=== PATIENT | female | born 1935 | race Caucasian/White ===

== ENCOUNTER 2016-07-08 10:06 | Emergency (ER) | payer OTHER, MEDICAID ==
[~2016-07-08 10:06] MED LIST: /HCTZ25TA PO; AVAP150T PO; CALC-136 PO; CALC600T7 PO; CALTTAB11 PO; ESTR2TAB PO; FLEC1.3D TD; MAGN200T3 PO; METOPROLOL PO; NUCY50TA PO; OMEGA XL PO; OMEP20CA3 PO; SUPETAB PO; TOPR25TA PO; VITA100066 PO; VITA500046 PO; VITACAP31 PO; VITAMIN B 12 PO; ZOFR4SOL PO; [UNRECOGNIZED DRUG - CODE] SC
[2016-07-08 11:27] LABS: BASO % 0.2 % (0.0-1.0); EOS % 0.2 % (0.0-3.0); LARGE UNSTAINED CELL # 0.1 K/mm3 (0.0-0.4); LARGE UNSTAINED CELL % 0.6 % (0.0-4.0); LYMPH # 0.9 K/mm3 (1.5-4.5); LYMPH % 7.2 % (24.0-44.0); MEAN CORPUSCULAR HEMOGLOBIN 28.5 pg (27.0-33.0); MEAN CORPUSCULAR HGB CONC 33.5 g/dl (32.0-36.5); MEAN CORPUSCULAR VOLUME 85.1 fl (80.0-96.0); MONO # 0.5 K/mm3 (0.0-0.8); MONO % 3.6 % (0.0-5.0); NEUTROPHILS # 11.4 K/mm3 (1.8-7.7); NEUTROPHILS % 88.3 % (36.0-66.0); PLATELET COUNT, AUTOMATED 211 k/mm3 (150-450); RED CELL DISTRIBUTION WIDTH 13.9 % (11.5-14.5)
[2016-07-08 11:48] LABS: CALCIUM LEVEL 8.7 MG/DL (8.8-10.2); CREATININE FOR GFR 1.06 MG/DL (0.55-1.02); FREE T4 1.33 NG/DL (0.76-1.46); GLOMERULAR FILTRATION RATE 53.2 (>39); MAGNESIUM LEVEL 1.8 MG/DL (1.8-2.4); POTASSIUM SERUM 4.4 MEQ/L (3.5-5.1)
[2016-07-08] MEDS ORDERED: levETIRAcetam 250MG TABLET (KEPPRA) As Ordered ONE (13:00)
--- NOTE | 2016-07-08 15:01 | EDDOCDS ---
Nurse's Notes [facility] Name: Sarika Esposito Age: 81 yrs Sex: Female : 1935 Arrival Date: 07/08/2016 Time: 10:06 Bed 6 Private MD: Diagnosis: Epilepsy and recurrent seizures;Alzheimer's disease Presentation: 07/08 10:12 Presenting complaint: EMS states: Called by EMS for unconscious, blanco female. On EMS jo3 arrival, pt was awake but not at her baseline. Pt has advanced Alzheimer's and is primarily non verbal and family reports intermittent episodes in which pt appears to lose consciousness and has tremors. This episode lasted 10 minutes. FSBS 136. Adult Sepsis Screening: Patient has new or worsening altered mentation (1 point). Patient's respiratory rate is less than 22. Systolic blood pressure is greater than 100. Patient has a qSOFA score of 1- Negative Sepsis Screen. Suicide/Homicide risk assessment- the patient denies having any suicidal and/or homicidal ideations and does not present with any other emotional, behavioral or mental health complaints. Status: Patient is not a customer service agent or dependent. Transition of care: patient was not received from another setting of care. 10:12 Method Of Arrival: Ambulance jo3 10:34 Acuity: SENAIT Level 3 kcs Triage Assessment: 10:40 General: Appears in no apparent distress, Behavior is inappropriate for age, quiet. The jo3 patient is triaged at the bedside. See Assessment in Nurses Notes section of ED record. Neurological: Level of Consciousness is awake, confused, Oriented to none. Cardiovascular: Edema is absent. Rhythm is regular. Respiratory: No deficits noted. Airway is patent Respiratory effort is even, unlabored, Respiratory pattern is regular, symmetrical, Breath sounds are clear bilaterally. Derm: Skin is intact, Skin is dry, Skin is pale, Skin temperature is cool. Musculoskeletal: MELY upper extremity mild contractions. Family reports that pt is unable to straighten mely arms. Injury Description: No known injury. Historical: - Allergies: No known drug Allergies; - Home Meds: 1. acetaminophen 500 mg Oral tab 1 tab BID (Last dose: 07/07/2016) 2. alprazolam 0.25 mg oral tab nightly (Last dose: 07/07/2016) 3. Citrucel Fiber Laxative Oral 1 tab twice a day (Last dose: 07/07/2016) 4. estradiol 2 mg Oral tab once daily (Last dose: 07/07/2016) 5. Rozerem 8 mg oral tab 1 tab nightly (Last dose: 07/07/2016) 6. risperidone 0.5 mg oral TbDL 0.5 tabs 2 times per day (Last dose: 07/08/2016) 7. magnesium oxide 400 mg Oral cap daily (Last dose: 07/07/2016) 8. irbesartan 150 mg oral tab once daily (Last dose: 07/08/2016) 9. Sertraline 100 mg nightly (Last dose: 07/07/2016) - PMHx: Alzheimers; Chronic kidney disease; Hypothyroidism; Dementia; Rheumatoid Arthritis; - PSHx: Hysterectomy; Hip Arthroplasty, Right; Partial Thyroidectomy; - The history from nurses notes was reviewed: and I agree with what is documented. - Social history: Smoking status: Patient states was never smoker of tobacco. Patient is speech impaired. - : The pt / caregiver states he / she is not on anticoagulants. Home medication list is obtained from family members. - Hospitalizations: : No recent hospitalization is reported. - Exposure Risk Screening:: None identified. - Immunization history:: All immunizations up-to-date. - Family history: Not pertinent. - Social history:: the patient is a non-smoker, the patient does not drink alcohol. Screenin:44 Screening information is obtained from family members. Fall risk: At risk due to jo3 immobility. Assistance ADL's: Requires assistance with meal preparation, this assistance is provided by family members, bathing, assistance is provided by family members, dressing, assistance is provided by family members, toileting, assistance is provided by family members, ambulation, assistance is provided by housework, assistance is provided by family members, medication administration, assistance is provided by family members. Abuse/DV Screen: The patient / caregiver reports he/she is: Unable to Assess. Nutritional screening: No deficits noted. Advance Directives:. home support is adequate. Assessment: 10:44 Reassessment: see triage assessment . jo3 11:15 General: Appears in no apparent distress, Behavior is quiet, Pt appears more alert than jo3 on arrival. Daughter and caregiver at bedside. Family reports that pt is closer to mental baseline at this time. Cardiovascular: Rhythm is regular. Respiratory: Airway is patent Respiratory effort is even, unlabored. Derm: Skin is intact, Skin is dry, Skin is pale, Skin temperature is cool. 12:15 Reassessment: Patient appears in no apparent distress at this time. Mentation closer jo3 still to baseline. Family remains at bedside. Awaiting results for disposition. Aware of plan of care. 13:20 General: Appears in no apparent distress, comfortable, Behavior is quiet. Neurological: jo3 Level of Consciousness is awake, confused. Cardiovascular: Rhythm is regular. Respiratory: Airway is patent Respiratory effort is even, unlabored. 14:34 General: Appears in no apparent distress, comfortable, Behavior is quiet. General: jo3 Awaiting transport home with caregiver at bedside. Per caregiver, transport should arrive around 1500. Neurological: Level of Consciousness is awake, confused. Cardiovascular: Rhythm is regular. Respiratory: Airway is patent Respiratory effort is even, unlabored. Derm: Skin is intact, Skin is dry, Skin is pale. Vital Signs: 10:13 BP 130 / 68 (auto/); jo3 10:14 Pulse 108 MON; Pulse Ox 93% ; jo3 10:16 BP 130 / 68; Pulse 107; Resp 18; Temp 97.0(O); Pulse Ox 94% on R/A; dem1 10:28 BP 128 / 63 (auto/); jo3 10:28 Pulse 108 MON; Pulse Ox 93% ; jo3 10:43 BP 127 / 60 (auto/); jo3 10:43 Pulse 110 MON; Pulse Ox 93% ; jo3 10:58 BP 133 / 74 (auto/); jo3 10:58 Pulse 112 MON; Pulse Ox 93% ; jo3 11:13 BP 131 / 73 (auto/); jo3 11:13 Pulse 112 MON; Pulse Ox 94% ; jo3 11:28 BP 133 / 65 (auto/); jo3 11:28 Pulse 110 MON; Pulse Ox 95% ; jo3 11:43 BP 133 / 64 (auto/); jo3 11:43 Pulse 110 MON; Pulse Ox 94% ; jo3 11:58 BP 144 / 60 (auto/); jo3 11:58 Pulse 112 MON; Pulse Ox 94% ; jo3 12:13 BP 143 / 66 (auto/); jo3 12:13 Pulse 108 MON; jo3 12:28 BP 141 / 67 (auto/); jo3 12:30 Pulse 108 MON; jo3 12:43 BP 126 / 58 (auto/); jo3 12:43 Pulse 106 MON; jo3 12:58 BP 103 / 55 (auto/); jo3 12:58 Pulse 92 MON; jo3 13:13 BP 130 / 70 (auto/); jo3 13:13 Pulse 96 MON; jo3 13:28 BP 145 / 70 (auto/); jo3 13:37 Pulse 106 MON; jo3 13:43 BP 145 / 65 (auto/); jo3 13:58 BP 146 / 65 (auto/); jo3 14:13 BP 150 / 67 (auto/); jo3 14:28 BP 146 / 83 (auto/); jo3 14:28 Pulse 106 MON; Resp 18; Temp 97.4(T); Pulse Ox 94% ; jo3 Vitals: 10:16 Log In Time N/A - ambulance arrival. [facility] ED Course: 10:07 Patient visited by Felicita Restrepo, Milk Drier. deg 10:07 Patient moved to Waiting deg 10:08 Patient moved to 6 kcs 10:16 Patient has correct armband on for positive identification. Placed in gown. Bed in low dem1 position. Call light in reach. Side rails up X2. traffic monitor specialist on. Pulse ox on. NIBP on. 10:18 Patient visited by Malika Ryder. dem1 10:30 EKG done. (by ED staff). Reviewed by Trevin Suero MD. dem1 10:31 Trevin Suero MD is Attending Physician. pc 10:32 Patient visited by Malika Ryder. dem1 10:34 Triage Initiated kcs 10:54 Patient visited by Zo Busch RN. jo3 11:04 Patient visited by Trevin Suero MD. pc 11:39 [facility] Payment Agreement was scanned into [employer] and attached to record. lg 11:50 Patient visited by Trevin Suero MD. pc 11:53 Patient visited by Zo Busch,OLINDA. jo3 13:05 Patient visited by Trevin Suero MD. pc 13:36 Everett Pat MD is Referral Physician. pc 14:35 Patient visited by Zo Busch RN. jo3 Administered Medications: 13:10 Drug: levETIRAcetam 250 mg [levetiracetam 250 mg tablet (1 tabs)] Route: PO; jo3 Order Results: Lab Order: CBC with Diff; SPEC'M 07/08/16 11:13 Test: WHITE BLOOD COUNT; Value: 13.0; Range: 4.0-10.0; Abnormal: Above high normal; Units: K/mm3; Status: F Test: RED BLOOD COUNT; Value: 4.46; Range: 4.00-5.40; Units: M/mm3; Status: F Test: HEMOGLOBIN; Value: 12.7; Range: 12.0-16.0; Units: g/dl; Status: F Test: HEMATOCRIT; Value: 37.9; Range: 36.0-47.0; Units: %; Status: F Test: MEAN CORPUSCULAR VOLUME; Value: 85.1; Range: 80.0-96.0; Units: fl; Status: F Test: MEAN CORPUSCULAR HEMOGLOBIN; Value: 28.5; Range: 27.0-33.0; Units: pg; Status: F Test: MEAN CORPUSCULAR HGB CONC; Value: 33.5; Range: 32.0-36.5; Units: g/dl; Status: F Test: RED CELL DISTRIBUTION WIDTH; Value: 13.9; Range: 11.5-14.5; Units: %; Status: F Test: PLATELET COUNT, AUTOMATED; Value: 211; Range: 150-450; Units: k/mm3; Status: F Test: NEUTROPHILS %; Value: 88.3; Range: 36.0-66.0; Abnormal: Above high normal; Units: %; Status: F Test: LYMPH %; Value: 7.2; Range: 24.0-44.0; Abnormal: Below low normal; Units: %; Status: F Test: MONO %; Value: 3.6; Range: 0.0-5.0; Units: %; Status: F Test: EOS %; Value: 0.2; Range: 0.0-3.0; Units: %; Status: F Test: BASO %; Value: 0.2; Range: 0.0-1.0; Units: %; Status: F Test: LARGE UNSTAINED CELL %; Value: 0.6; Range: 0.0-4.0; Units: %; Status: F Test: NEUTROPHILS #; Value: 11.4; Range: 1.8-7.7; Abnormal: Above high normal; Units: K/mm3; Status: F Test: LYMPH #; Value: 0.9; Range: 1.5-4.5; Abnormal: Below low normal; Units: K/mm3; Status: F Test: MONO #; Value: 0.5; Range: 0.0-0.8; Units: K/mm3; Status: F Test: EOS #; Value: 0.0; Range: 0.0-0.50; Units: K/mm3; Status: F Test: BASO #; Value: 0.0; Range: 0.0-0.2; Units: K/mm3; Status: F Test: LARGE UNSTAINED CELL #; Value: 0.1; Range: 0.0-0.4; Units: K/mm3; Status: F Lab Order: MED Profile; [facility]' 07/08/16 11:13 Test: GLUCOSE, FASTING; Value: 139; Range: 83-110; Abnormal: Above high normal; Units: MG/DL; Status: F Test: BLOOD UREA NITROGEN; Value: 26; Range: 7-18; Abnormal: Above high normal; Units: MG/DL; Status: F Test: CREATININE FOR GFR; Value: 1.06; Range: 0.55-1.02; Abnormal: Above high normal; Units: MG/DL; Status: F Test: GLOMERULAR FILTRATION RATE; Value: 53.2; Range: >39; Status: F Test: SODIUM LEVEL; Value: 138; Range: 136-145; Units: MEQ/L; Status: F Test: POTASSIUM SERUM; Value: 4.4; Range: 3.5-5.1; Units: MEQ/L; Status: F Test: CHLORIDE LEVEL; Value: 103; Range: 98-107; Units: MEQ/L; Status: F Test: CARBON DIOXIDE LEVEL; Value: 23; Range: 21-32; Units: MEQ/L; Status: F Test: ANION GAP; Value: 12; Range: 8-16; Units: MEQ/L; Status: F Test: CALCIUM LEVEL; Value: 8.7; Range: 8.8-10.2; Abnormal: Below low normal; Units: MG/DL; Status: F Test Note: ; Units are mL/min/1.73 m2 Chronic Kidney Disease Staging per NKF: Stage I & II GFR >=60 Normal to Mildly Decreased Stage III GFR 30-59 Moderately Decreased Stage IV GFR 15-29 Severely Decreased Stage V GFR <15 Very Little GFR Left ESRD GFR <15 on EEG TECHNICIAN Lab Order: TSH with Free T4; SPEC'M 07/08/16 11:13 Test: THYROID STIMULATING HORMONE; Value: 2.680; Range: 0.358-3.740; Units: uIU/ML; Status: F Test: FREE T4; Value: 1.33; Range: 0.76-1.46; Units: NG/DL; Status: F Lab Order: Magnesium Level; SPEC'M 07/08/16 11:13 Test: MAGNESIUM LEVEL; Value: 1.8; Range: 1.8-2.4; Units: MG/DL; Status: F Outcome: 13:37 Discharge ordered by Provider. 15:00 Patient left the ED. jo3 Signatures: Trevin Suero MD MD pc Sleeman, Kacey, RN RN Felicita Lofton, Milk Drier Unit deg Kareem Peacock, Doug Reg lg Zo BuschRN RN jo3 Malika Ryder MTDD
--- NOTE | 2016-07-08 15:01 | EDDOCDS ---
Physician Documentation [facility] Name: Sarika Esposito Age: 81 yrs Sex: Female : 1935 Arrival Date: 07/08/2016 Time: 10:06 Bed 6 Private MD: Disposition: 07/08 13:35 Critical Care: Critical care not applicable. pc Disposition: 07/08/16 13:37 Discharged to Home/Self Care. Impression: Epilepsy and recurrent seizures, Alzheimer's disease. - Condition is Stable. - Discharge Instructions: Seizure, Adult. - Prescriptions for Keppra 250 mg Oral tablet - take 1 tablet by ORAL route 2 times per day; 60 tablet. - Medication Reconciliation, Local Pharmacy Hours form. - Follow up: Everett Pat MD; When: Call to arrange an appointment; Reason: Continuance of care. - Problem is new. - Symptoms have improved. HPI: 11:07 This 81 yrs old Other Female presents to ER via Ambulance with complaints of Probable pc Seizure. 11:07 The history is obtained from the patient's family/friend. A reliable history and/or pc examination was not able to be obtained, due to baseline dementia. She was being reclined in a chair when her eyes rolled back into her head, she became apneic and "blanco around the mouth" and was unresponsive for 30-60 seconds. It was another 5-1- minutes before she was at her baseline. Her last such episode was months ago. She has advanced Alzheimer's dementia and her investigations for possible seizure activity have been negative to date. She has not had any recent illness. 11:14 The patient has experienced similar episodes in the past, multiple times. The patient pc has not recently seen a physician. Historical: - Allergies: No known drug Allergies; - Home Meds: 1. acetaminophen 500 mg Oral tab 1 tab BID (Last dose: 07/07/2016) 2. alprazolam 0.25 mg oral tab nightly (Last dose: 07/07/2016) 3. Citrucel Fiber Laxative Oral 1 tab twice a day (Last dose: 07/07/2016) 4. estradiol 2 mg Oral tab once daily (Last dose: 07/07/2016) 5. Rozerem 8 mg oral tab 1 tab nightly (Last dose: 07/07/2016) 6. risperidone 0.5 mg oral TbDL 0.5 tabs 2 times per day (Last dose: 07/08/2016) 7. magnesium oxide 400 mg Oral cap daily (Last dose: 07/07/2016) 8. irbesartan 150 mg oral tab once daily (Last dose: 07/08/2016) 9. Sertraline 100 mg nightly (Last dose: 07/07/2016) - PMHx: Alzheimers; Chronic kidney disease; Hypothyroidism; Dementia; Rheumatoid Arthritis; - PSHx: Hysterectomy; Hip Arthroplasty, Right; Partial Thyroidectomy; - The history from nurses notes was reviewed: and I agree with what is documented. - Social history: Smoking status: Patient states was never smoker of tobacco. Patient is speech impaired. - : The pt / caregiver states he / she is not on anticoagulants. Home medication list is obtained from family members. - Hospitalizations: : No recent hospitalization is reported. - Exposure Risk Screening:: None identified. - Immunization history:: All immunizations up-to-date. - Family history: Not pertinent. - Social history:: the patient is a non-smoker, the patient does not drink alcohol. ROS: 11:16 All systems are negative except as listed. pc Exam: 11:16 General Appearance: no acute distress, alert. pc 11:16 EENT: normal eye inspection, ears, nose and throat normal, pharynx normal, mucous membranes moist 11:16 Neck: goiter. 11:16 Respiratory: no respiratory distress, normal breath sounds. 11:16 CVS: regular rhythm, normal S1 and S2, no murmurs, strong peripheral pulses, normal capillary refill, the patient is tachycardic, at 107 bpm. 11:16 Abdomen: soft, non-tender, no organomegaly, normal bowel sounds. 11:16 Back: normal inspection. 11:16 Skin: skin color is normal, warm, dry. 11:16 Extremities: The extremities have a grossly normal appearance. 11:16 Neuro: cranial nerves normal as tested, no motor deficits, no sensory deficits, unable to test orientation because of chronic dementia. Vital Signs: 10:13 BP 130 / 68 (auto/); jo3 10:14 Pulse 108 MON; Pulse Ox 93% ; jo3 10:16 BP 130 / 68; Pulse 107; Resp 18; Temp 97.0(O); Pulse Ox 94% on R/A; dem1 10:28 BP 128 / 63 (auto/); jo3 10:28 Pulse 108 MON; Pulse Ox 93% ; jo3 10:43 BP 127 / 60 (auto/); jo3 10:43 Pulse 110 MON; Pulse Ox 93% ; jo3 10:58 BP 133 / 74 (auto/); jo3 10:58 Pulse 112 MON; Pulse Ox 93% ; jo3 11:13 BP 131 / 73 (auto/); jo3 11:13 Pulse 112 MON; Pulse Ox 94% ; jo3 11:28 BP 133 / 65 (auto/); jo3 11:28 Pulse 110 MON; Pulse Ox 95% ; jo3 11:43 BP 133 / 64 (auto/); jo3 11:43 Pulse 110 MON; Pulse Ox 94% ; jo3 11:58 BP 144 / 60 (auto/); jo3 11:58 Pulse 112 MON; Pulse Ox 94% ; jo3 12:13 BP 143 / 66 (auto/); jo3 12:13 Pulse 108 MON; jo3 12:28 BP 141 / 67 (auto/); jo3 12:30 Pulse 108 MON; jo3 12:43 BP 126 / 58 (auto/); jo3 12:43 Pulse 106 MON; jo3 12:58 BP 103 / 55 (auto/); jo3 12:58 Pulse 92 MON; jo3 13:13 BP 130 / 70 (auto/); jo3 13:13 Pulse 96 MON; jo3 13:28 BP 145 / 70 (auto/); jo3 13:37 Pulse 106 MON; jo3 13:43 BP 145 / 65 (auto/); jo3 13:58 BP 146 / 65 (auto/); jo3 14:13 BP 150 / 67 (auto/); jo3 14:28 BP 146 / 83 (auto/); jo3 14:28 Pulse 106 MON; Resp 18; Temp 97.4(T); Pulse Ox 94% ; jo3 MDM: 10:17 ECG WITH READING ER PHYS+CARDIAG ordered. EDMS 11:06 CBC with Diff Ordered. EDMS 11:06 MED Profile Ordered. EDMS 11:06 TSH with Free T4 Ordered. EDMS 11:06 Magnesium Level Ordered. EDMS 11:16 Differential Diagnosis: suspected seizure activity, advanced dementia. Plan: labs, d/w pc PCP. 11:27 Financial registration complete. lg 11:39 [facility] Payment Agreement was scanned into [employer] and attached to record. lg 11:50 CBC with Diff Reviewed. pc 11:50 MED Profile Reviewed. pc 11:50 TSH with Free T4 Reviewed. pc 11:50 Magnesium Level Reviewed. pc 12:52 levETIRAcetam 250 mg PO once ordered. pc 13:35 Data reviewed: old medical records, vital signs, nurses notes, lab test results. Test pc interpretation: LAB - all labs as ordered have been reviewed, interpreted and considered in the overall management of the clinical presentation;. The patient has been re-examined and re-evaluated. There is no appreciated change of the patient's symptoms at this time. Physician consultation: Dr. Dm Doshi MD regarding patient's condition, and advises the medications/treatment as provided. Disposition: The historical points, examination findings, and any diagnostic results supporting the provided diagnosis, were discussed with the patient or legal guardian. The need for outpatient follow up with the provider listed on their discharge instructions was discussed. They were encouraged to return to [facility], or the nearest ED, if symptoms worsen/persist, or for any other questions/concerns. 13:38 Test interpretation: EKG. pc EC:38 Rate is 127 beats/min. Rhythm is regular, Sinus tachycardia. QRS Converse is Normal. AL pc interval is normal. QRS interval is normal. QT interval is normal. No Q waves. T waves are Normal. ST Segment is depressed in leads V3, V4, V6, <1mm. Clinical impression: Sinus tachycardia, Nonspecific ST-T changes, and Incomplete RBBB. No change from previous ECG in January,. Administered Medications: 13:10 Drug: levETIRAcetam 250 mg [levetiracetam 250 mg tablet (1 tabs)] Route: PO; jo3 Signatures: Dispatcher [employer] EDMS Trevin Suero MD MD pc Ganter, LoriLee, Doug Camacho Zo Busch RN RN jo3 The chart was reviewed and I authenticate all verbal orders and agree with the evaluation and treatment provided.Corrections: (The following items were deleted from the chart) 11:16 11:07 She was being reclined in a chair when her eyes rolled back into her head, she pc became apneic and "blanco around the mouth" and was unresponsive for 30-60 seconds. It was another pc Attachments: 11:39 [facility]
--- NOTE | 2016-07-09 15:11 | ECGEPIP ---
Stationary ECG Study [facility] - ED Test Date: 2016-07-08 Pat Name: SIRI MESSER Department: Room: - Gender: F Vp: benjamín : 1935 Requested By: Trevin Rodgers Order Number: [id number] Reading MD: Patsy Villafuerte Measurements Intervals Sieper Rate: 107 P: 56 MI: 139 QRS: 36 QRSD: 114 T: 55 QT: 370 QTc: 496 Interpretive Statements SINUS TACHYCARDIA INCOMPLETE RIGHT BUNDLE BRANCH BLOCK ST DEVIATION AND MODERATE T-WAVE ABNORMALITY, CONSIDER ANTERIOR ISCHEMIA, MORE PRONOUNCED COMPARED 01/25/16 BASELINE ARTIFACT LIMITS INTERPRETATION Electronically Signed On 07-09-2016 15:10:55 EST by Patsy Villafuerte
--- NOTE | 2016-07-10 16:01 | EDDOCDS ---
Physician Documentation [facility] Name: Sarika Esposito Age: 81 yrs Sex: Female : 1935 Arrival Date: 07/08/2016 Time: 10:06 Bed 6 Private MD: Disposition: 07/08 13:35 Critical Care: Critical care not applicable. pc Disposition: 07/08/16 13:37 Discharged to Home/Self Care. Impression: Epilepsy and recurrent seizures, Alzheimer's disease. - Condition is Stable. - Discharge Instructions: Seizure, Adult. - Prescriptions for Keppra 250 mg Oral tablet - take 1 tablet by ORAL route 2 times per day; 60 tablet. - Medication Reconciliation, Local Pharmacy Hours form. - Follow up: Everett Pat MD; When: Call to arrange an appointment; Reason: Continuance of care. - Problem is new. - Symptoms have improved. HPI: 11:07 This 81 yrs old Other Female presents to ER via Ambulance with complaints of Probable pc Seizure. 11:07 The history is obtained from the patient's family/friend. A reliable history and/or pc examination was not able to be obtained, due to baseline dementia. She was being reclined in a chair when her eyes rolled back into her head, she became apneic and "blanco around the mouth" and was unresponsive for 30-60 seconds. It was another 5-1- minutes before she was at her baseline. Her last such episode was months ago. She has advanced Alzheimer's dementia and her investigations for possible seizure activity have been negative to date. She has not had any recent illness. 11:14 The patient has experienced similar episodes in the past, multiple times. The patient pc has not recently seen a physician. Historical: - Allergies: No known drug Allergies; - Home Meds: 1. acetaminophen 500 mg Oral tab 1 tab BID (Last dose: 07/07/2016) 2. alprazolam 0.25 mg oral tab nightly (Last dose: 07/07/2016) 3. Citrucel Fiber Laxative Oral 1 tab twice a day (Last dose: 07/07/2016) 4. estradiol 2 mg Oral tab once daily (Last dose: 07/07/2016) 5. Rozerem 8 mg oral tab 1 tab nightly (Last dose: 07/07/2016) 6. risperidone 0.5 mg oral TbDL 0.5 tabs 2 times per day (Last dose: 07/08/2016) 7. magnesium oxide 400 mg Oral cap daily (Last dose: 07/07/2016) 8. irbesartan 150 mg oral tab once daily (Last dose: 07/08/2016) 9. Sertraline 100 mg nightly (Last dose: 07/07/2016) - PMHx: Alzheimers; Chronic kidney disease; Hypothyroidism; Dementia; Rheumatoid Arthritis; - PSHx: Hysterectomy; Hip Arthroplasty, Right; Partial Thyroidectomy; - The history from nurses notes was reviewed: and I agree with what is documented. - Social history: Smoking status: Patient states was never smoker of tobacco. Patient is speech impaired. - : The pt / caregiver states he / she is not on anticoagulants. Home medication list is obtained from family members. - Hospitalizations: : No recent hospitalization is reported. - Exposure Risk Screening:: None identified. - Immunization history:: All immunizations up-to-date. - Family history: Not pertinent. - Social history:: the patient is a non-smoker, the patient does not drink alcohol. ROS: 11:16 All systems are negative except as listed. pc Exam: 11:16 General Appearance: no acute distress, alert. pc 11:16 EENT: normal eye inspection, ears, nose and throat normal, pharynx normal, mucous membranes moist 11:16 Neck: goiter. 11:16 Respiratory: no respiratory distress, normal breath sounds. 11:16 CVS: regular rhythm, normal S1 and S2, no murmurs, strong peripheral pulses, normal capillary refill, the patient is tachycardic, at 107 bpm. 11:16 Abdomen: soft, non-tender, no organomegaly, normal bowel sounds. 11:16 Back: normal inspection. 11:16 Skin: skin color is normal, warm, dry. 11:16 Extremities: The extremities have a grossly normal appearance. 11:16 Neuro: cranial nerves normal as tested, no motor deficits, no sensory deficits, unable to test orientation because of chronic dementia. Vital Signs: 10:13 BP 130 / 68 (auto/); jo3 10:14 Pulse 108 MON; Pulse Ox 93% ; jo3 10:16 BP 130 / 68; Pulse 107; Resp 18; Temp 97.0(O); Pulse Ox 94% on R/A; dem1 10:28 BP 128 / 63 (auto/); jo3 10:28 Pulse 108 MON; Pulse Ox 93% ; jo3 10:43 BP 127 / 60 (auto/); jo3 10:43 Pulse 110 MON; Pulse Ox 93% ; jo3 10:58 BP 133 / 74 (auto/); jo3 10:58 Pulse 112 MON; Pulse Ox 93% ; jo3 11:13 BP 131 / 73 (auto/); jo3 11:13 Pulse 112 MON; Pulse Ox 94% ; jo3 11:28 BP 133 / 65 (auto/); jo3 11:28 Pulse 110 MON; Pulse Ox 95% ; jo3 11:43 BP 133 / 64 (auto/); jo3 11:43 Pulse 110 MON; Pulse Ox 94% ; jo3 11:58 BP 144 / 60 (auto/); jo3 11:58 Pulse 112 MON; Pulse Ox 94% ; jo3 12:13 BP 143 / 66 (auto/); jo3 12:13 Pulse 108 MON; jo3 12:28 BP 141 / 67 (auto/); jo3 12:30 Pulse 108 MON; jo3 12:43 BP 126 / 58 (auto/); jo3 12:43 Pulse 106 MON; jo3 12:58 BP 103 / 55 (auto/); jo3 12:58 Pulse 92 MON; jo3 13:13 BP 130 / 70 (auto/); jo3 13:13 Pulse 96 MON; jo3 13:28 BP 145 / 70 (auto/); jo3 13:37 Pulse 106 MON; jo3 13:43 BP 145 / 65 (auto/); jo3 13:58 BP 146 / 65 (auto/); jo3 14:13 BP 150 / 67 (auto/); jo3 14:28 BP 146 / 83 (auto/); jo3 14:28 Pulse 106 MON; Resp 18; Temp 97.4(T); Pulse Ox 94% ; jo3 MDM: 10:17 ECG WITH READING ER PHYS+CARDIAG ordered. EDMS 11:06 CBC with Diff Ordered. EDMS 11:06 MED Profile Ordered. EDMS 11:06 TSH with Free T4 Ordered. EDMS 11:06 Magnesium Level Ordered. EDMS 11:16 Differential Diagnosis: suspected seizure activity, advanced dementia. Plan: labs, d/w pc PCP. 11:27 Financial registration complete. lg 11:39 [facility] Payment Agreement was scanned into [employer] and attached to record. lg 11:50 CBC with Diff Reviewed. pc 11:50 MED Profile Reviewed. pc 11:50 TSH with Free T4 Reviewed. pc 11:50 Magnesium Level Reviewed. pc 12:52 levETIRAcetam 250 mg PO once ordered. pc 13:35 Data reviewed: old medical records, vital signs, nurses notes, lab test results. Test pc interpretation: LAB - all labs as ordered have been reviewed, interpreted and considered in the overall management of the clinical presentation;. The patient has been re-examined and re-evaluated. There is no appreciated change of the patient's symptoms at this time. Physician consultation: Dr. Dm Doshi MD regarding patient's condition, and advises the medications/treatment as provided. Disposition: The historical points, examination findings, and any diagnostic results supporting the provided diagnosis, were discussed with the patient or legal guardian. The need for outpatient follow up with the provider listed on their discharge instructions was discussed. They were encouraged to return to [facility], or the nearest ED, if symptoms worsen/persist, or for any other questions/concerns. 13:38 Test interpretation: EKG. pc EC:38 Rate is 127 beats/min. Rhythm is regular, Sinus tachycardia. QRS [place] is Normal. VT pc interval is normal. QRS interval is normal. QT interval is normal. No Q waves. T waves are Normal. ST Segment is depressed in leads V3, V4, V6, <1mm. Clinical impression: Sinus tachycardia, Nonspecific ST-T changes, and Incomplete RBBB. No change from previous ECG in January,. Administered Medications: 13:10 Drug: levETIRAcetam 250 mg [levetiracetam 250 mg tablet (1 tabs)] Route: PO; jo3 Signatures: Dispatcher [employer] EDMS Trevin Suero MD MD pc Ganter, LoriLee, Doug Camacho Zo Busch RN RN jo3 The chart was reviewed and I authenticate all verbal orders and agree with the evaluation and treatment provided.Corrections: (The following items were deleted from the chart) 11:16 11:07 She was being reclined in a chair when her eyes rolled back into her head, she pc became apneic and "blanco around the mouth" and was unresponsive for 30-60 seconds. It was another pc Attachments: 11:39 [facility] Payment Agreement lg Chart Complete MTDD
--- NOTE | 2016-07-10 16:01 | EDDOCDS ---
Nurse's Notes [facility] Name: Sarika Messer Age: 81 yrs Sex: Female : 1935 Arrival Date: 07/08/2016 Time: 10:06 Bed 6 Private MD: Diagnosis: Epilepsy and recurrent seizures;Alzheimer's disease Presentation: 07/08 10:12 Presenting complaint: EMS states: Called by EMS for unconscious, blanco female. On EMS jo3 arrival, pt was awake but not at her baseline. Pt has advanced Alzheimer's and is primarily non verbal and family reports intermittent episodes in which pt appears to lose consciousness and has tremors. This episode lasted 10 minutes. FSBS 136. Adult Sepsis Screening: Patient has new or worsening altered mentation (1 point). Patient's respiratory rate is less than 22. Systolic blood pressure is greater than 100. Patient has a qSOFA score of 1- Negative Sepsis Screen. Suicide/Homicide risk assessment- the patient denies having any suicidal and/or homicidal ideations and does not present with any other emotional, behavioral or mental health complaints. Status: Patient is not a surgical services assistant or dependent. Transition of care: patient was not received from another setting of care. 10:12 Method Of Arrival: Ambulance jo3 10:34 Acuity: SENAIT Level 3 kcs Triage Assessment: 10:40 General: Appears in no apparent distress, Behavior is inappropriate for age, quiet. The jo3 patient is triaged at the bedside. See Assessment in Nurses Notes section of ED record. Neurological: Level of Consciousness is awake, confused, Oriented to none. Cardiovascular: Edema is absent. Rhythm is regular. Respiratory: No deficits noted. Airway is patent Respiratory effort is even, unlabored, Respiratory pattern is regular, symmetrical, Breath sounds are clear bilaterally. Derm: Skin is intact, Skin is dry, Skin is pale, Skin temperature is cool. Musculoskeletal: MELY upper extremity mild contractions. Family reports that pt is unable to straighten mely arms. Injury Description: No known injury. Historical: - Allergies: No known drug Allergies; - Home Meds: 1. acetaminophen 500 mg Oral tab 1 tab BID (Last dose: 07/07/2016) 2. alprazolam 0.25 mg oral tab nightly (Last dose: 07/07/2016) 3. Citrucel Fiber Laxative Oral 1 tab twice a day (Last dose: 07/07/2016) 4. estradiol 2 mg Oral tab once daily (Last dose: 07/07/2016) 5. Rozerem 8 mg oral tab 1 tab nightly (Last dose: 07/07/2016) 6. risperidone 0.5 mg oral TbDL 0.5 tabs 2 times per day (Last dose: 07/08/2016) 7. magnesium oxide 400 mg Oral cap daily (Last dose: 07/07/2016) 8. irbesartan 150 mg oral tab once daily (Last dose: 07/08/2016) 9. Sertraline 100 mg nightly (Last dose: 07/07/2016) - PMHx: Alzheimers; Chronic kidney disease; Hypothyroidism; Dementia; Rheumatoid Arthritis; - PSHx: Hysterectomy; Hip Arthroplasty, Right; Partial Thyroidectomy; - The history from nurses notes was reviewed: and I agree with what is documented. - Social history: Smoking status: Patient states was never smoker of tobacco. Patient is speech impaired. - : The pt / caregiver states he / she is not on anticoagulants. Home medication list is obtained from family members. - Hospitalizations: : No recent hospitalization is reported. - Exposure Risk Screening:: None identified. - Immunization history:: All immunizations up-to-date. - Family history: Not pertinent. - Social history:: the patient is a non-smoker, the patient does not drink alcohol. Screenin:44 Screening information is obtained from family members. Fall risk: At risk due to jo3 immobility. Assistance ADL's: Requires assistance with meal preparation, this assistance is provided by family members, bathing, assistance is provided by family members, dressing, assistance is provided by family members, toileting, assistance is provided by family members, ambulation, assistance is provided by housework, assistance is provided by family members, medication administration, assistance is provided by family members. Abuse/DV Screen: The patient / caregiver reports he/she is: Unable to Assess. Nutritional screening: No deficits noted. Advance Directives:. home support is adequate. Assessment: 10:44 Reassessment: see triage assessment . jo3 11:15 General: Appears in no apparent distress, Behavior is quiet, Pt appears more alert than jo3 on arrival. Daughter and caregiver at bedside. Family reports that pt is closer to mental baseline at this time. Cardiovascular: Rhythm is regular. Respiratory: Airway is patent Respiratory effort is even, unlabored. Derm: Skin is intact, Skin is dry, Skin is pale, Skin temperature is cool. 12:15 Reassessment: Patient appears in no apparent distress at this time. Mentation closer jo3 still to baseline. Family remains at bedside. Awaiting results for disposition. Aware of plan of care. 13:20 General: Appears in no apparent distress, comfortable, Behavior is quiet. Neurological: jo3 Level of Consciousness is awake, confused. Cardiovascular: Rhythm is regular. Respiratory: Airway is patent Respiratory effort is even, unlabored. 14:34 General: Appears in no apparent distress, comfortable, Behavior is quiet. General: jo3 Awaiting transport home with caregiver at bedside. Per caregiver, transport should arrive around 1500. Neurological: Level of Consciousness is awake, confused. Cardiovascular: Rhythm is regular. Respiratory: Airway is patent Respiratory effort is even, unlabored. Derm: Skin is intact, Skin is dry, Skin is pale. Vital Signs: 10:13 BP 130 / 68 (auto/); jo3 10:14 Pulse 108 MON; Pulse Ox 93% ; jo3 10:16 BP 130 / 68; Pulse 107; Resp 18; Temp 97.0(O); Pulse Ox 94% on R/A; dem1 10:28 BP 128 / 63 (auto/); jo3 10:28 Pulse 108 MON; Pulse Ox 93% ; jo3 10:43 BP 127 / 60 (auto/); jo3 10:43 Pulse 110 MON; Pulse Ox 93% ; jo3 10:58 BP 133 / 74 (auto/); jo3 10:58 Pulse 112 MON; Pulse Ox 93% ; jo3 11:13 BP 131 / 73 (auto/); jo3 11:13 Pulse 112 MON; Pulse Ox 94% ; jo3 11:28 BP 133 / 65 (auto/); jo3 11:28 Pulse 110 MON; Pulse Ox 95% ; jo3 11:43 BP 133 / 64 (auto/); jo3 11:43 Pulse 110 MON; Pulse Ox 94% ; jo3 11:58 BP 144 / 60 (auto/); jo3 11:58 Pulse 112 MON; Pulse Ox 94% ; jo3 12:13 BP 143 / 66 (auto/); jo3 12:13 Pulse 108 MON; jo3 12:28 BP 141 / 67 (auto/); jo3 12:30 Pulse 108 MON; jo3 12:43 BP 126 / 58 (auto/); jo3 12:43 Pulse 106 MON; jo3 12:58 BP 103 / 55 (auto/); jo3 12:58 Pulse 92 MON; jo3 13:13 BP 130 / 70 (auto/); jo3 13:13 Pulse 96 MON; jo3 13:28 BP 145 / 70 (auto/); jo3 13:37 Pulse 106 MON; jo3 13:43 BP 145 / 65 (auto/); jo3 13:58 BP 146 / 65 (auto/); jo3 14:13 BP 150 / 67 (auto/); jo3 14:28 BP 146 / 83 (auto/); jo3 14:28 Pulse 106 MON; Resp 18; Temp 97.4(T); Pulse Ox 94% ; jo3 Vitals: 10:16 Log In Time N/A - ambulance arrival. [facility] ED Course: 10:07 Patient visited by Felicita Restrepo, Olericulturist. deg 10:07 Patient moved to Waiting deg 10:08 Patient moved to 6 kcs 10:16 Patient has correct armband on for positive identification. Placed in gown. Bed in low dem1 position. Call light in reach. Side rails up X2. color television console monitor on. Pulse ox on. NIBP on. 10:18 Patient visited by Malika Ryder. dem1 10:30 EKG done. (by ED staff). Reviewed by Trevin Suero MD. dem1 10:31 Trevin Suero MD is Attending Physician. pc 10:32 Patient visited by Malika Ryder. dem1 10:34 Triage Initiated kcs 10:54 Patient visited by Zo Busch RN. jo3 11:04 Patient visited by Trevin Suero MD. pc 11:39 [facility] Payment Agreement was scanned into [employer] and attached to record. lg 11:50 Patient visited by Trevin Suero MD. pc 11:53 Patient visited by Zo Busch RN. jo3 13:05 Patient visited by Trevin Suero MD. pc 13:36 Everett Pat MD is Referral Physician. pc 14:35 Patient visited by Zo Busch RN. jo3 07/09 15:14 EKG-ADULT Returned. EDMS Administered Medications: 07/08 13:10 Drug: levETIRAcetam 250 mg [levetiracetam 250 mg tablet (1 tabs)] Route: PO; jo3 Order Results: Lab Order: CBC with Diff; SPEC'M 07/08/16 11:13 Test: WHITE BLOOD COUNT; Value: 13.0; Range: 4.0-10.0; Abnormal: Above high normal; Units: K/mm3; Status: F Test: RED BLOOD COUNT; Value: 4.46; Range: 4.00-5.40; Units: M/mm3; Status: F Test: HEMOGLOBIN; Value: 12.7; Range: 12.0-16.0; Units: g/dl; Status: F Test: HEMATOCRIT; Value: 37.9; Range: 36.0-47.0; Units: %; Status: F Test: MEAN CORPUSCULAR VOLUME; Value: 85.1; Range: 80.0-96.0; Units: fl; Status: F Test: MEAN CORPUSCULAR HEMOGLOBIN; Value: 28.5; Range: 27.0-33.0; Units: pg; Status: F Test: MEAN CORPUSCULAR HGB CONC; Value: 33.5; Range: 32.0-36.5; Units: g/dl; Status: F Test: RED CELL DISTRIBUTION WIDTH; Value: 13.9; Range: 11.5-14.5; Units: %; Status: F Test: PLATELET COUNT, AUTOMATED; Value: 211; Range: 150-450; Units: k/mm3; Status: F Test: NEUTROPHILS %; Value: 88.3; Range: 36.0-66.0; Abnormal: Above high normal; Units: %; Status: F Test: LYMPH %; Value: 7.2; Range: 24.0-44.0; Abnormal: Below low normal; Units: %; Status: F Test: MONO %; Value: 3.6; Range: 0.0-5.0; Units: %; Status: F Test: EOS %; Value: 0.2; Range: 0.0-3.0; Units: %; Status: F Test: BASO %; Value: 0.2; Range: 0.0-1.0; Units: %; Status: F Test: LARGE UNSTAINED CELL %; Value: 0.6; Range: 0.0-4.0; Units: %; Status: F Test: NEUTROPHILS #; Value: 11.4; Range: 1.8-7.7; Abnormal: Above high normal; Units: K/mm3; Status: F Test: LYMPH #; Value: 0.9; Range: 1.5-4.5; Abnormal: Below low normal; Units: K/mm3; Status: F Test: MONO #; Value: 0.5; Range: 0.0-0.8; Units: K/mm3; Status: F Test: EOS #; Value: 0.0; Range: 0.0-0.50; Units: K/mm3; Status: F Test: BASO #; Value: 0.0; Range: 0.0-0.2; Units: K/mm3; Status: F Test: LARGE UNSTAINED CELL #; Value: 0.1; Range: 0.0-0.4; Units: K/mm3; Status: F Lab Order: MED Profile; [facility]' 07/08/16 11:13 Test: GLUCOSE, FASTING; Value: 139; Range: 83-110; Abnormal: Above high normal; Units: MG/DL; Status: F Test: BLOOD UREA NITROGEN; Value: 26; Range: 7-18; Abnormal: Above high normal; Units: MG/DL; Status: F Test: CREATININE FOR GFR; Value: 1.06; Range: 0.55-1.02; Abnormal: Above high normal; Units: MG/DL; Status: F Test: GLOMERULAR FILTRATION RATE; Value: 53.2; Range: >39; Status: F Test: SODIUM LEVEL; Value: 138; Range: 136-145; Units: MEQ/L; Status: F Test: POTASSIUM SERUM; Value: 4.4; Range: 3.5-5.1; Units: MEQ/L; Status: F Test: CHLORIDE LEVEL; Value: 103; Range: 98-107; Units: MEQ/L; Status: F Test: CARBON DIOXIDE LEVEL; Value: 23; Range: 21-32; Units: MEQ/L; Status: F Test: ANION GAP; Value: 12; Range: 8-16; Units: MEQ/L; Status: F Test: CALCIUM LEVEL; Value: 8.7; Range: 8.8-10.2; Abnormal: Below low normal; Units: MG/DL; Status: F Test Note: ; Units are mL/min/1.73 m2 Chronic Kidney Disease Staging per NKF: Stage I & II GFR >=60 Normal to Mildly Decreased Stage III GFR 30-59 Moderately Decreased Stage IV GFR 15-29 Severely Decreased Stage V GFR <15 Very Little GFR Left ESRD GFR <15 on [employer]RE[employer] Lab Order: TSH with Free T4; SPEC'07/08/16 11:13 Test: THYROID STIMULATING HORMONE; Value: 2.680; Range: 0.358-3.740; Units: uIU/ML; Status: F Test: FREE T4; Value: 1.33; Range: 0.76-1.46; Units: NG/DL; Status: F Lab Order: Magnesium Level; SPEC'07/08/16 11:13 Test: MAGNESIUM LEVEL; Value: 1.8; Range: 1.8-2.4; Units: MG/DL; Status: F Radiology Order: EKG-ADULT Test: EKG-ADULT REASON FOR EXAMINATION: Syncope; Stationary ECG Study; [facility] - ED; ; Test Date: 2016-07-08; Pat Name: SARIKA MESSER Department:; Room: -; Gender: F It Application Development Manager: dm; : 1935 Requested By: Trevin Rodgers; Order Number: [id number] Reading MD: Patsy Villafuerte; Measurements; Intervals [place]; Rate: 107 P: 56; ND: 139 QRS: 36; QRSD: 114 T: 55; QT: 370; QTc: 496; Interpretive Statements; SINUS TACHYCARDIA; INCOMPLETE RIGHT BUNDLE BRANCH BLOCK; ST DEVIATION AND MODERATE T-WAVE ABNORMALITY, CONSIDER ANTERIOR ISCHEMIA,; MORE; PRONOUNCED COMPARED 01/25/16; BASELINE ARTIFACT LIMITS INTERPRETATION; ; Electronically Signed On 07-09-2016 15:10:55 EST by Patsy Villafuerte; Outcome: 13:37 Discharge ordered by Provider. pc 15:00 Patient left the ED. jo3 Signatures: Dispatcher [employer] Trevin Church MD MD pc Sleeman, Kacey, RN RN Felicita Lofton, Olericulturist Unit deg Kareem Peacock, Reg Reg Zo Lyons,RN RN jo3 Malika Ryder Chart Complete MTDD
--- NOTE | 2016-07-10 16:01 | EDDOCDS ---
Physician Documentation [facility] Name: Sarika Esposito Age: 81 yrs Sex: Female : 1935 Arrival Date: 07/08/2016 Time: 10:06 Bed 6 Private MD: Disposition: 07/08 13:35 Critical Care: Critical care not applicable. pc Disposition: 07/08/16 13:37 Discharged to Home/Self Care. Impression: Epilepsy and recurrent seizures, Alzheimer's disease. - Condition is Stable. - Discharge Instructions: Seizure, Adult. - Prescriptions for Keppra 250 mg Oral tablet - take 1 tablet by ORAL route 2 times per day; 60 tablet. - Medication Reconciliation, Local Pharmacy Hours form. - Follow up: Everett Pat MD; When: Call to arrange an appointment; Reason: Continuance of care. - Problem is new. - Symptoms have improved. HPI: 11:07 This 81 yrs old Other Female presents to ER via Ambulance with complaints of Probable pc Seizure. 11:07 The history is obtained from the patient's family/friend. A reliable history and/or pc examination was not able to be obtained, due to baseline dementia. She was being reclined in a chair when her eyes rolled back into her head, she became apneic and "blanco around the mouth" and was unresponsive for 30-60 seconds. It was another 5-1- minutes before she was at her baseline. Her last such episode was months ago. She has advanced Alzheimer's dementia and her investigations for possible seizure activity have been negative to date. She has not had any recent illness. 11:14 The patient has experienced similar episodes in the past, multiple times. The patient pc has not recently seen a physician. Historical: - Allergies: No known drug Allergies; - Home Meds: 1. acetaminophen 500 mg Oral tab 1 tab BID (Last dose: 07/07/2016) 2. alprazolam 0.25 mg oral tab nightly (Last dose: 07/07/2016) 3. Citrucel Fiber Laxative Oral 1 tab twice a day (Last dose: 07/07/2016) 4. estradiol 2 mg Oral tab once daily (Last dose: 07/07/2016) 5. Rozerem 8 mg oral tab 1 tab nightly (Last dose: 07/07/2016) 6. risperidone 0.5 mg oral TbDL 0.5 tabs 2 times per day (Last dose: 07/08/2016) 7. magnesium oxide 400 mg Oral cap daily (Last dose: 07/07/2016) 8. irbesartan 150 mg oral tab once daily (Last dose: 07/08/2016) 9. Sertraline 100 mg nightly (Last dose: 07/07/2016) - PMHx: Alzheimers; Chronic kidney disease; Hypothyroidism; Dementia; Rheumatoid Arthritis; - PSHx: Hysterectomy; Hip Arthroplasty, Right; Partial Thyroidectomy; - The history from nurses notes was reviewed: and I agree with what is documented. - Social history: Smoking status: Patient states was never smoker of tobacco. Patient is speech impaired. - : The pt / caregiver states he / she is not on anticoagulants. Home medication list is obtained from family members. - Hospitalizations: : No recent hospitalization is reported. - Exposure Risk Screening:: None identified. - Immunization history:: All immunizations up-to-date. - Family history: Not pertinent. - Social history:: the patient is a non-smoker, the patient does not drink alcohol. ROS: 11:16 All systems are negative except as listed. pc Exam: 11:16 General Appearance: no acute distress, alert. pc 11:16 EENT: normal eye inspection, ears, nose and throat normal, pharynx normal, mucous membranes moist 11:16 Neck: goiter. 11:16 Respiratory: no respiratory distress, normal breath sounds. 11:16 CVS: regular rhythm, normal S1 and S2, no murmurs, strong peripheral pulses, normal capillary refill, the patient is tachycardic, at 107 bpm. 11:16 Abdomen: soft, non-tender, no organomegaly, normal bowel sounds. 11:16 Back: normal inspection. 11:16 Skin: skin color is normal, warm, dry. 11:16 Extremities: The extremities have a grossly normal appearance. 11:16 Neuro: cranial nerves normal as tested, no motor deficits, no sensory deficits, unable to test orientation because of chronic dementia. Vital Signs: 10:13 BP 130 / 68 (auto/); jo3 10:14 Pulse 108 MON; Pulse Ox 93% ; jo3 10:16 BP 130 / 68; Pulse 107; Resp 18; Temp 97.0(O); Pulse Ox 94% on R/A; dem1 10:28 BP 128 / 63 (auto/); jo3 10:28 Pulse 108 MON; Pulse Ox 93% ; jo3 10:43 BP 127 / 60 (auto/); jo3 10:43 Pulse 110 MON; Pulse Ox 93% ; jo3 10:58 BP 133 / 74 (auto/); jo3 10:58 Pulse 112 MON; Pulse Ox 93% ; jo3 11:13 BP 131 / 73 (auto/); jo3 11:13 Pulse 112 MON; Pulse Ox 94% ; jo3 11:28 BP 133 / 65 (auto/); jo3 11:28 Pulse 110 MON; Pulse Ox 95% ; jo3 11:43 BP 133 / 64 (auto/); jo3 11:43 Pulse 110 MON; Pulse Ox 94% ; jo3 11:58 BP 144 / 60 (auto/); jo3 11:58 Pulse 112 MON; Pulse Ox 94% ; jo3 12:13 BP 143 / 66 (auto/); jo3 12:13 Pulse 108 MON; jo3 12:28 BP 141 / 67 (auto/); jo3 12:30 Pulse 108 MON; jo3 12:43 BP 126 / 58 (auto/); jo3 12:43 Pulse 106 MON; jo3 12:58 BP 103 / 55 (auto/); jo3 12:58 Pulse 92 MON; jo3 13:13 BP 130 / 70 (auto/); jo3 13:13 Pulse 96 MON; jo3 13:28 BP 145 / 70 (auto/); jo3 13:37 Pulse 106 MON; jo3 13:43 BP 145 / 65 (auto/); jo3 13:58 BP 146 / 65 (auto/); jo3 14:13 BP 150 / 67 (auto/); jo3 14:28 BP 146 / 83 (auto/); jo3 14:28 Pulse 106 MON; Resp 18; Temp 97.4(T); Pulse Ox 94% ; jo3 MDM: 10:17 ECG WITH READING ER PHYS+CARDIAG ordered. EDMS 11:06 CBC with Diff Ordered. EDMS 11:06 MED Profile Ordered. EDMS 11:06 TSH with Free T4 Ordered. EDMS 11:06 Magnesium Level Ordered. EDMS 11:16 Differential Diagnosis: suspected seizure activity, advanced dementia. Plan: labs, d/w pc PCP. 11:27 Financial registration complete. lg 11:39 [facility] Payment Agreement was scanned into [employer] and attached to record. lg 11:50 CBC with Diff Reviewed. pc 11:50 MED Profile Reviewed. pc 11:50 TSH with Free T4 Reviewed. pc 11:50 Magnesium Level Reviewed. pc 12:52 levETIRAcetam 250 mg PO once ordered. pc 13:35 Data reviewed: old medical records, vital signs, nurses notes, lab test results. Test pc interpretation: LAB - all labs as ordered have been reviewed, interpreted and considered in the overall management of the clinical presentation;. The patient has been re-examined and re-evaluated. There is no appreciated change of the patient's symptoms at this time. Physician consultation: Dr. Dm Doshi MD regarding patient's condition, and advises the medications/treatment as provided. Disposition: The historical points, examination findings, and any diagnostic results supporting the provided diagnosis, were discussed with the patient or legal guardian. The need for outpatient follow up with the provider listed on their discharge instructions was discussed. They were encouraged to return to [facility], or the nearest ED, if symptoms worsen/persist, or for any other questions/concerns. 13:38 Test interpretation: EKG. pc EC:38 Rate is 127 beats/min. Rhythm is regular, Sinus tachycardia. QRS [place] is Normal. [place] pc interval is normal. QRS interval is normal. QT interval is normal. No Q waves. T waves are Normal. ST Segment is depressed in leads V3, V4, V6, <1mm. Clinical impression: Sinus tachycardia, Nonspecific ST-T changes, and Incomplete RBBB. No change from previous ECG in January,. Administered Medications: 13:10 Drug: levETIRAcetam 250 mg [levetiracetam 250 mg tablet (1 tabs)] Route: PO; jo3 Signatures: Dispatcher [employer] EDMS Trevin Suero MD MD pc Ganter, LoriLee, Doug Camacho Zo Busch RN RN jo3 The chart was reviewed and I authenticate all verbal orders and agree with the evaluation and treatment provided.Corrections: (The following items were deleted from the chart) 11:16 11:07 She was being reclined in a chair when her eyes rolled back into her head, she pc became apneic and "blanco around the mouth" and was unresponsive for 30-60 seconds. It was another pc Attachments: 11:39 [facility] Payment Agreement lg Chart Complete MTDD
--- NOTE | 2016-07-10 20:23 | EDDOCDS ---
Physician Documentation [facility] Name: Sarika Esposito Age: 81 yrs Sex: Female : 1935 Arrival Date: 07/08/2016 Time: 10:06 Bed 6 Private MD: Disposition: 07/08 13:35 Critical Care: Critical care not applicable. pc Disposition: 07/08/16 13:37 Discharged to Home/Self Care. Impression: Epilepsy and recurrent seizures, Alzheimer's disease. - Condition is Stable. - Discharge Instructions: Seizure, Adult. - Prescriptions for Keppra 250 mg Oral tablet - take 1 tablet by ORAL route 2 times per day; 60 tablet. - Medication Reconciliation, Local Pharmacy Hours form. - Follow up: Everett Pat MD; When: Call to arrange an appointment; Reason: Continuance of care. - Problem is new. - Symptoms have improved. HPI: 11:07 This 81 yrs old Other Female presents to ER via Ambulance with complaints of Probable pc Seizure. 11:07 The history is obtained from the patient's family/friend. A reliable history and/or pc examination was not able to be obtained, due to baseline dementia. She was being reclined in a chair when her eyes rolled back into her head, she became apneic and "blanco around the mouth" and was unresponsive for 30-60 seconds. It was another 5-1- minutes before she was at her baseline. Her last such episode was months ago. She has advanced Alzheimer's dementia and her investigations for possible seizure activity have been negative to date. She has not had any recent illness. 11:14 The patient has experienced similar episodes in the past, multiple times. The patient pc has not recently seen a physician. Historical: - Allergies: No known drug Allergies; - Home Meds: 1. acetaminophen 500 mg Oral tab 1 tab BID (Last dose: 07/07/2016) 2. alprazolam 0.25 mg oral tab nightly (Last dose: 07/07/2016) 3. Citrucel Fiber Laxative Oral 1 tab twice a day (Last dose: 07/07/2016) 4. estradiol 2 mg Oral tab once daily (Last dose: 07/07/2016) 5. Rozerem 8 mg oral tab 1 tab nightly (Last dose: 07/07/2016) 6. risperidone 0.5 mg oral TbDL 0.5 tabs 2 times per day (Last dose: 07/08/2016) 7. magnesium oxide 400 mg Oral cap daily (Last dose: 07/07/2016) 8. irbesartan 150 mg oral tab once daily (Last dose: 07/08/2016) 9. Sertraline 100 mg nightly (Last dose: 07/07/2016) - PMHx: Alzheimers; Chronic kidney disease; Hypothyroidism; Dementia; Rheumatoid Arthritis; - PSHx: Hysterectomy; Hip Arthroplasty, Right; Partial Thyroidectomy; - The history from nurses notes was reviewed: and I agree with what is documented. - Social history: Smoking status: Patient states was never smoker of tobacco. Patient is speech impaired. - : The pt / caregiver states he / she is not on anticoagulants. Home medication list is obtained from family members. - Hospitalizations: : No recent hospitalization is reported. - Exposure Risk Screening:: None identified. - Immunization history:: All immunizations up-to-date. - Family history: Not pertinent. - Social history:: the patient is a non-smoker, the patient does not drink alcohol. ROS: 11:16 All systems are negative except as listed. pc Exam: 11:16 General Appearance: no acute distress, alert. pc 11:16 EENT: normal eye inspection, ears, nose and throat normal, pharynx normal, mucous membranes moist 11:16 Neck: goiter. 11:16 Respiratory: no respiratory distress, normal breath sounds. 11:16 CVS: regular rhythm, normal S1 and S2, no murmurs, strong peripheral pulses, normal capillary refill, the patient is tachycardic, at 107 bpm. 11:16 Abdomen: soft, non-tender, no organomegaly, normal bowel sounds. 11:16 Back: normal inspection. 11:16 Skin: skin color is normal, warm, dry. 11:16 Extremities: The extremities have a grossly normal appearance. 11:16 Neuro: cranial nerves normal as tested, no motor deficits, no sensory deficits, unable to test orientation because of chronic dementia. Vital Signs: 10:13 BP 130 / 68 (auto/); jo3 10:14 Pulse 108 MON; Pulse Ox 93% ; jo3 10:16 BP 130 / 68; Pulse 107; Resp 18; Temp 97.0(O); Pulse Ox 94% on R/A; dem1 10:28 BP 128 / 63 (auto/); jo3 10:28 Pulse 108 MON; Pulse Ox 93% ; jo3 10:43 BP 127 / 60 (auto/); jo3 10:43 Pulse 110 MON; Pulse Ox 93% ; jo3 10:58 BP 133 / 74 (auto/); jo3 10:58 Pulse 112 MON; Pulse Ox 93% ; jo3 11:13 BP 131 / 73 (auto/); jo3 11:13 Pulse 112 MON; Pulse Ox 94% ; jo3 11:28 BP 133 / 65 (auto/); jo3 11:28 Pulse 110 MON; Pulse Ox 95% ; jo3 11:43 BP 133 / 64 (auto/); jo3 11:43 Pulse 110 MON; Pulse Ox 94% ; jo3 11:58 BP 144 / 60 (auto/); jo3 11:58 Pulse 112 MON; Pulse Ox 94% ; jo3 12:13 BP 143 / 66 (auto/); jo3 12:13 Pulse 108 MON; jo3 12:28 BP 141 / 67 (auto/); jo3 12:30 Pulse 108 MON; jo3 12:43 BP 126 / 58 (auto/); jo3 12:43 Pulse 106 MON; jo3 12:58 BP 103 / 55 (auto/); jo3 12:58 Pulse 92 MON; jo3 13:13 BP 130 / 70 (auto/); jo3 13:13 Pulse 96 MON; jo3 13:28 BP 145 / 70 (auto/); jo3 13:37 Pulse 106 MON; jo3 13:43 BP 145 / 65 (auto/); jo3 13:58 BP 146 / 65 (auto/); jo3 14:13 BP 150 / 67 (auto/); jo3 14:28 BP 146 / 83 (auto/); jo3 14:28 Pulse 106 MON; Resp 18; Temp 97.4(T); Pulse Ox 94% ; jo3 MDM: 10:17 ECG WITH READING ER PHYS+CARDIAG ordered. EDMS 11:06 CBC with Diff Ordered. EDMS 11:06 MED Profile Ordered. EDMS 11:06 TSH with Free T4 Ordered. EDMS 11:06 Magnesium Level Ordered. EDMS 11:16 Differential Diagnosis: suspected seizure activity, advanced dementia. Plan: labs, d/w pc PCP. 11:27 Financial registration complete. lg 11:39 [facility] Payment Agreement was scanned into [employer] and attached to record. lg 11:50 CBC with Diff Reviewed. pc 11:50 MED Profile Reviewed. pc 11:50 TSH with Free T4 Reviewed. pc 11:50 Magnesium Level Reviewed. pc 12:52 levETIRAcetam 250 mg PO once ordered. pc 13:35 Data reviewed: old medical records, vital signs, nurses notes, lab test results. Test pc interpretation: LAB - all labs as ordered have been reviewed, interpreted and considered in the overall management of the clinical presentation;. The patient has been re-examined and re-evaluated. There is no appreciated change of the patient's symptoms at this time. Physician consultation: Dr. Dm Doshi MD regarding patient's condition, and advises the medications/treatment as provided. Disposition: The historical points, examination findings, and any diagnostic results supporting the provided diagnosis, were discussed with the patient or legal guardian. The need for outpatient follow up with the provider listed on their discharge instructions was discussed. They were encouraged to return to [facility], or the nearest ED, if symptoms worsen/persist, or for any other questions/concerns. 13:38 Test interpretation: EKG. pc EC:38 Rate is 127 beats/min. Rhythm is regular, Sinus tachycardia. QRS [place] is Normal. [place] pc interval is normal. QRS interval is normal. QT interval is normal. No Q waves. T waves are Normal. ST Segment is depressed in leads V3, V4, V6, <1mm. Clinical impression: Sinus tachycardia, Nonspecific ST-T changes, and Incomplete RBBB. No change from previous ECG in January,. Administered Medications: 13:10 Drug: levETIRAcetam 250 mg [levetiracetam 250 mg tablet (1 tabs)] Route: PO; jo3 Signatures: Dispatcher [employer] EDMS Trevin Suero MD MD pc Ganter, LoriLee, Doug Camacho Zo Busch RN RN jo3 The chart was reviewed and I authenticate all verbal orders and agree with the evaluation and treatment provided.Corrections: (The following items were deleted from the chart) 11:16 11:07 She was being reclined in a chair when her eyes rolled back into her head, she pc became apneic and "blanco around the mouth" and was unresponsive for 30-60 seconds. It was another pc Attachments: 11:39 [facility] Payment Agreement lg Chart Complete MTDD
--- NOTE | 2016-07-10 20:23 | EDDOCDS ---
Nurse's Notes [facility] Name: Sarika Messer Age: 81 yrs Sex: Female : 1935 Arrival Date: 07/08/2016 Time: 10:06 Bed 6 Private MD: Diagnosis: Epilepsy and recurrent seizures;Alzheimer's disease Presentation: 07/08 10:12 Presenting complaint: EMS states: Called by EMS for unconscious, blanco female. On EMS jo3 arrival, pt was awake but not at her baseline. Pt has advanced Alzheimer's and is primarily non verbal and family reports intermittent episodes in which pt appears to lose consciousness and has tremors. This episode lasted 10 minutes. FSBS 136. Adult Sepsis Screening: Patient has new or worsening altered mentation (1 point). Patient's respiratory rate is less than 22. Systolic blood pressure is greater than 100. Patient has a qSOFA score of 1- Negative Sepsis Screen. Suicide/Homicide risk assessment- the patient denies having any suicidal and/or homicidal ideations and does not present with any other emotional, behavioral or mental health complaints. 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 Transition of care: patient was not received from another setting of care. 10:12 Method Of Arrival: Ambulance jo3 10:34 Acuity: SENAIT Level 3 kcs Triage Assessment: 10:40 General: Appears in no apparent distress, Behavior is inappropriate for age, quiet. The jo3 patient is triaged at the bedside. See Assessment in Nurses Notes section of ED record. Neurological: Level of Consciousness is awake, confused, Oriented to none. Cardiovascular: Edema is absent. Rhythm is regular. Respiratory: No deficits noted. Airway is patent Respiratory effort is even, unlabored, Respiratory pattern is regular, symmetrical, Breath sounds are clear bilaterally. Derm: Skin is intact, Skin is dry, Skin is pale, Skin temperature is cool. Musculoskeletal: MELY upper extremity mild contractions. Family reports that pt is unable to straighten mely arms. Injury Description: No known injury. Historical: - Allergies: No known drug Allergies; - Home Meds: 1. acetaminophen 500 mg Oral tab 1 tab BID (Last dose: 07/07/2016) 2. alprazolam 0.25 mg oral tab nightly (Last dose: 07/07/2016) 3. Citrucel Fiber Laxative Oral 1 tab twice a day (Last dose: 07/07/2016) 4. estradiol 2 mg Oral tab once daily (Last dose: 07/07/2016) 5. Rozerem 8 mg oral tab 1 tab nightly (Last dose: 07/07/2016) 6. risperidone 0.5 mg oral TbDL 0.5 tabs 2 times per day (Last dose: 07/08/2016) 7. magnesium oxide 400 mg Oral cap daily (Last dose: 07/07/2016) 8. irbesartan 150 mg oral tab once daily (Last dose: 07/08/2016) 9. Sertraline 100 mg nightly (Last dose: 07/07/2016) - PMHx: Alzheimers; Chronic kidney disease; Hypothyroidism; Dementia; Rheumatoid Arthritis; - PSHx: Hysterectomy; Hip Arthroplasty, Right; Partial Thyroidectomy; - The history from nurses notes was reviewed: and I agree with what is documented. - Social history: Smoking status: Patient states was never smoker of tobacco. Patient is speech impaired. - : The pt / caregiver states he / she is not on anticoagulants. Home medication list is obtained from family members. - Hospitalizations: : No recent hospitalization is reported. - Exposure Risk Screening:: None identified. - Immunization history:: All immunizations up-to-date. - Family history: Not pertinent. - Social history:: the patient is a non-smoker, the patient does not drink alcohol. Screenin:44 Screening information is obtained from family members. Fall risk: At risk due to jo3 immobility. Assistance ADL's: Requires assistance with meal preparation, this assistance is provided by family members, bathing, assistance is provided by family members, dressing, assistance is provided by family members, toileting, assistance is provided by family members, ambulation, assistance is provided by housework, assistance is provided by family members, medication administration, assistance is provided by family members. Abuse/DV Screen: The patient / caregiver reports he/she is: Unable to Assess. Nutritional screening: No deficits noted. Advance Directives:. home support is adequate. Assessment: 10:44 Reassessment: see triage assessment . jo3 11:15 General: Appears in no apparent distress, Behavior is quiet, Pt appears more alert than jo3 on arrival. Daughter and caregiver at bedside. Family reports that pt is closer to mental baseline at this time. Cardiovascular: Rhythm is regular. Respiratory: Airway is patent Respiratory effort is even, unlabored. Derm: Skin is intact, Skin is dry, Skin is pale, Skin temperature is cool. 12:15 Reassessment: Patient appears in no apparent distress at this time. Mentation closer jo3 still to baseline. Family remains at bedside. Awaiting results for disposition. Aware of plan of care. 13:20 General: Appears in no apparent distress, comfortable, Behavior is quiet. Neurological: jo3 Level of Consciousness is awake, confused. Cardiovascular: Rhythm is regular. Respiratory: Airway is patent Respiratory effort is even, unlabored. 14:34 General: Appears in no apparent distress, comfortable, Behavior is quiet. General: jo3 Awaiting transport home with caregiver at bedside. Per caregiver, transport should arrive around 1500. Neurological: Level of Consciousness is awake, confused. Cardiovascular: Rhythm is regular. Respiratory: Airway is patent Respiratory effort is even, unlabored. Derm: Skin is intact, Skin is dry, Skin is pale. Vital Signs: 10:13 BP 130 / 68 (auto/); jo3 10:14 Pulse 108 MON; Pulse Ox 93% ; jo3 10:16 BP 130 / 68; Pulse 107; Resp 18; Temp 97.0(O); Pulse Ox 94% on R/A; dem1 10:28 BP 128 / 63 (auto/); jo3 10:28 Pulse 108 MON; Pulse Ox 93% ; jo3 10:43 BP 127 / 60 (auto/); jo3 10:43 Pulse 110 MON; Pulse Ox 93% ; jo3 10:58 BP 133 / 74 (auto/); jo3 10:58 Pulse 112 MON; Pulse Ox 93% ; jo3 11:13 BP 131 / 73 (auto/); jo3 11:13 Pulse 112 MON; Pulse Ox 94% ; jo3 11:28 BP 133 / 65 (auto/); jo3 11:28 Pulse 110 MON; Pulse Ox 95% ; jo3 11:43 BP 133 / 64 (auto/); jo3 11:43 Pulse 110 MON; Pulse Ox 94% ; jo3 11:58 BP 144 / 60 (auto/); jo3 11:58 Pulse 112 MON; Pulse Ox 94% ; jo3 12:13 BP 143 / 66 (auto/); jo3 12:13 Pulse 108 MON; jo3 12:28 BP 141 / 67 (auto/); jo3 12:30 Pulse 108 MON; jo3 12:43 BP 126 / 58 (auto/); jo3 12:43 Pulse 106 MON; jo3 12:58 BP 103 / 55 (auto/); jo3 12:58 Pulse 92 MON; jo3 13:13 BP 130 / 70 (auto/); jo3 13:13 Pulse 96 MON; jo3 13:28 BP 145 / 70 (auto/); jo3 13:37 Pulse 106 MON; jo3 13:43 BP 145 / 65 (auto/); jo3 13:58 BP 146 / 65 (auto/); jo3 14:13 BP 150 / 67 (auto/); jo3 14:28 BP 146 / 83 (auto/); jo3 14:28 Pulse 106 MON; Resp 18; Temp 97.4(T); Pulse Ox 94% ; jo3 Vitals: 10:16 Log In Time N/A - ambulance [facility] ED Course: 10:07 Patient visited by Felicita Restrepo, Principal Technical Specialist. deg 10:07 Patient moved to Waiting deg 10:08 Patient moved to 6 kcs 10:16 Patient has correct armband on for positive identification. Placed in gown. Bed in low dem1 position. Call light in reach. Side rails up X2. sales order coordinator on. Pulse ox on. NIBP on. 10:18 Patient visited by Malika Ryder. dem1 10:30 EKG done. (by ED staff). Reviewed by Trevin Suero MD. dem1 10:31 Trevin Suero MD is Attending Physician. pc 10:32 Patient visited by Malika Ryder. dem1 10:34 Triage Initiated kcs 10:54 Patient visited by Zo Busch RN. jo3 11:04 Patient visited by Trevin Suero MD. pc 11:39 [facility] Payment Agreement was scanned into Circle and attached to record. lg 11:50 Patient visited by Trevin Suero MD. pc 11:53 Patient visited by Zo Busch RN. jo3 13:05 Patient visited by Trevin Suero MD. pc 13:36 Everett Pat MD is Referral Physician. pc 14:35 Patient visited by Zo Busch RN. jo3 07/09 15:14 EKG-ADULT Returned. EDMS Administered Medications: 07/08 13:10 Drug: levETIRAcetam 250 mg [levetiracetam 250 mg tablet (1 tabs)] Route: PO; jo3 Order Results: Lab Order: CBC with Diff; SPEC'M 07/08/16 11:13 Test: WHITE BLOOD COUNT; Value: 13.0; Range: 4.0-10.0; Abnormal: Above high normal; Units: K/mm3; Status: F Test: RED BLOOD COUNT; Value: 4.46; Range: 4.00-5.40; Units: M/mm3; Status: F Test: HEMOGLOBIN; Value: 12.7; Range: 12.0-16.0; Units: g/dl; Status: F Test: HEMATOCRIT; Value: 37.9; Range: 36.0-47.0; Units: %; Status: F Test: MEAN CORPUSCULAR VOLUME; Value: 85.1; Range: 80.0-96.0; Units: fl; Status: F Test: MEAN CORPUSCULAR HEMOGLOBIN; Value: 28.5; Range: 27.0-33.0; Units: pg; Status: F Test: MEAN CORPUSCULAR HGB CONC; Value: 33.5; Range: 32.0-36.5; Units: g/dl; Status: F Test: RED CELL DISTRIBUTION WIDTH; Value: 13.9; Range: 11.5-14.5; Units: %; Status: F Test: PLATELET COUNT, AUTOMATED; Value: 211; Range: 150-450; Units: k/mm3; Status: F Test: NEUTROPHILS %; Value: 88.3; Range: 36.0-66.0; Abnormal: Above high normal; Units: %; Status: F Test: LYMPH %; Value: 7.2; Range: 24.0-44.0; Abnormal: Below low normal; Units: %; Status: F Test: MONO %; Value: 3.6; Range: 0.0-5.0; Units: %; Status: F Test: EOS %; Value: 0.2; Range: 0.0-3.0; Units: %; Status: F Test: BASO %; Value: 0.2; Range: 0.0-1.0; Units: %; Status: F Test: LARGE UNSTAINED CELL %; Value: 0.6; Range: 0.0-4.0; Units: %; Status: F Test: NEUTROPHILS #; Value: 11.4; Range: 1.8-7.7; Abnormal: Above high normal; Units: K/mm3; Status: F Test: LYMPH #; Value: 0.9; Range: 1.5-4.5; Abnormal: Below low normal; Units: K/mm3; Status: F Test: MONO #; Value: 0.5; Range: 0.0-0.8; Units: K/mm3; Status: F Test: EOS #; Value: 0.0; Range: 0.0-0.50; Units: K/mm3; Status: F Test: BASO #; Value: 0.0; Range: 0.0-0.2; Units: K/mm3; Status: F Test: LARGE UNSTAINED CELL #; Value: 0.1; Range: 0.0-0.4; Units: K/mm3; Status: F Lab Order: MED Profile; [facility]' 07/08/16 11:13 Test: GLUCOSE, FASTING; Value: 139; Range: 83-110; Abnormal: Above high normal; Units: MG/DL; Status: F Test: BLOOD UREA NITROGEN; Value: 26; Range: 7-18; Abnormal: Above high normal; Units: MG/DL; Status: F Test: CREATININE FOR GFR; Value: 1.06; Range: 0.55-1.02; Abnormal: Above high normal; Units: MG/DL; Status: F Test: GLOMERULAR FILTRATION RATE; Value: 53.2; Range: >39; Status: F Test: SODIUM LEVEL; Value: 138; Range: 136-145; Units: MEQ/L; Status: F Test: POTASSIUM SERUM; Value: 4.4; Range: 3.5-5.1; Units: MEQ/L; Status: F Test: CHLORIDE LEVEL; Value: 103; Range: 98-107; Units: MEQ/L; Status: F Test: CARBON DIOXIDE LEVEL; Value: 23; Range: 21-32; Units: MEQ/L; Status: F Test: ANION GAP; Value: 12; Range: 8-16; Units: MEQ/L; Status: F Test: CALCIUM LEVEL; Value: 8.7; Range: 8.8-10.2; Abnormal: Below low normal; Units: MG/DL; Status: F Test Note: ; Units are mL/min/1.73 m2 Chronic Kidney Disease Staging per NKF: Stage I & II GFR >=60 Normal to Mildly Decreased Stage III GFR 30-59 Moderately Decreased Stage IV GFR 15-29 Severely Decreased Stage V GFR <15 Very Little GFR Left ESRD GFR <15 on DATA COMMUNICATIONS ANALYST Lab Order: TSH with Free T4; SPEC'07/08/16 11:13 Test: THYROID STIMULATING HORMONE; Value: 2.680; Range: 0.358-3.740; Units: uIU/ML; Status: F Test: FREE T4; Value: 1.33; Range: 0.76-1.46; Units: NG/DL; Status: F Lab Order: Magnesium Level; SPEC'07/08/16 11:13 Test: MAGNESIUM LEVEL; Value: 1.8; Range: 1.8-2.4; Units: MG/DL; Status: F Radiology Order: EKG-ADULT Test: EKG-ADULT REASON FOR EXAMINATION: Syncope; Stationary ECG Study; [facility] - ED; ; Test Date: 2016-07-08; Pat Name: SARIKA MESSER Department:; Room: -; Gender: F Doctor Of Chiropractic: dm; : 1935 Requested By: Trevin Rodgers; Order Number: [id number] Reading MD: Patsy Villafuerte; Measurements; Intervals [place]; Rate: 107 P: 56; IA: 139 QRS: 36; QRSD: 114 T: 55; QT: 370; QTc: 496; Interpretive Statements; SINUS TACHYCARDIA; INCOMPLETE RIGHT BUNDLE BRANCH BLOCK; ST DEVIATION AND MODERATE T-WAVE ABNORMALITY, CONSIDER ANTERIOR ISCHEMIA,; MORE; PRONOUNCED COMPARED 01/25/16; BASELINE ARTIFACT LIMITS INTERPRETATION; ; Electronically Signed On 07-09-2016 15:10:55 EST by Patsy Villafuerte; Outcome: 13:37 Discharge ordered by Provider. pc 15:00 Patient left the ED. jo3 Signatures: Dispatcher [employer] Trevin Church MD MD pc Sleeman, Kacey, RN RN Felicita Lofton, Principal Technical Specialist Unit deg Kareem Peacock, Reg Reg Zo Lyons,RN RN jo3 Malika Ryder Chart Complete MTDD
--- NOTE | 2016-07-10 20:23 | EDDOCDS ---
Physician Documentation [facility] Name: Sarika Esposito Age: 81 yrs Sex: Female : 1935 Arrival Date: 07/08/2016 Time: 10:06 Bed 6 Private MD: Disposition: 07/08 13:35 Critical Care: Critical care not applicable. pc Disposition: 07/08/16 13:37 Discharged to Home/Self Care. Impression: Epilepsy and recurrent seizures, Alzheimer's disease. - Condition is Stable. - Discharge Instructions: Seizure, Adult. - Prescriptions for Keppra 250 mg Oral tablet - take 1 tablet by ORAL route 2 times per day; 60 tablet. - Medication Reconciliation, Local Pharmacy Hours form. - Follow up: Everett Pat MD; When: Call to arrange an appointment; Reason: Continuance of care. - Problem is new. - Symptoms have improved. HPI: 11:07 This 81 yrs old Other Female presents to ER via Ambulance with complaints of Probable pc Seizure. 11:07 The history is obtained from the patient's family/friend. A reliable history and/or pc examination was not able to be obtained, due to baseline dementia. She was being reclined in a chair when her eyes rolled back into her head, she became apneic and "blanco around the mouth" and was unresponsive for 30-60 seconds. It was another 5-1- minutes before she was at her baseline. Her last such episode was months ago. She has advanced Alzheimer's dementia and her investigations for possible seizure activity have been negative to date. She has not had any recent illness. 11:14 The patient has experienced similar episodes in the past, multiple times. The patient pc has not recently seen a physician. Historical: - Allergies: No known drug Allergies; - Home Meds: 1. acetaminophen 500 mg Oral tab 1 tab BID (Last dose: 07/07/2016) 2. alprazolam 0.25 mg oral tab nightly (Last dose: 07/07/2016) 3. Citrucel Fiber Laxative Oral 1 tab twice a day (Last dose: 07/07/2016) 4. estradiol 2 mg Oral tab once daily (Last dose: 07/07/2016) 5. Rozerem 8 mg oral tab 1 tab nightly (Last dose: 07/07/2016) 6. risperidone 0.5 mg oral TbDL 0.5 tabs 2 times per day (Last dose: 07/08/2016) 7. magnesium oxide 400 mg Oral cap daily (Last dose: 07/07/2016) 8. irbesartan 150 mg oral tab once daily (Last dose: 07/08/2016) 9. Sertraline 100 mg nightly (Last dose: 07/07/2016) - PMHx: Alzheimers; Chronic kidney disease; Hypothyroidism; Dementia; Rheumatoid Arthritis; - PSHx: Hysterectomy; Hip Arthroplasty, Right; Partial Thyroidectomy; - The history from nurses notes was reviewed: and I agree with what is documented. - Social history: Smoking status: Patient states was never smoker of tobacco. Patient is speech impaired. - : The pt / caregiver states he / she is not on anticoagulants. Home medication list is obtained from family members. - Hospitalizations: : No recent hospitalization is reported. - Exposure Risk Screening:: None identified. - Immunization history:: All immunizations up-to-date. - Family history: Not pertinent. - Social history:: the patient is a non-smoker, the patient does not drink alcohol. ROS: 11:16 All systems are negative except as listed. pc Exam: 11:16 General Appearance: no acute distress, alert. pc 11:16 EENT: normal eye inspection, ears, nose and throat normal, pharynx normal, mucous membranes moist 11:16 Neck: goiter. 11:16 Respiratory: no respiratory distress, normal breath sounds. 11:16 CVS: regular rhythm, normal S1 and S2, no murmurs, strong peripheral pulses, normal capillary refill, the patient is tachycardic, at 107 bpm. 11:16 Abdomen: soft, non-tender, no organomegaly, normal bowel sounds. 11:16 Back: normal inspection. 11:16 Skin: skin color is normal, warm, dry. 11:16 Extremities: The extremities have a grossly normal appearance. 11:16 Neuro: cranial nerves normal as tested, no motor deficits, no sensory deficits, unable to test orientation because of chronic dementia. Vital Signs: 10:13 BP 130 / 68 (auto/); jo3 10:14 Pulse 108 MON; Pulse Ox 93% ; jo3 10:16 BP 130 / 68; Pulse 107; Resp 18; Temp 97.0(O); Pulse Ox 94% on R/A; dem1 10:28 BP 128 / 63 (auto/); jo3 10:28 Pulse 108 MON; Pulse Ox 93% ; jo3 10:43 BP 127 / 60 (auto/); jo3 10:43 Pulse 110 MON; Pulse Ox 93% ; jo3 10:58 BP 133 / 74 (auto/); jo3 10:58 Pulse 112 MON; Pulse Ox 93% ; jo3 11:13 BP 131 / 73 (auto/); jo3 11:13 Pulse 112 MON; Pulse Ox 94% ; jo3 11:28 BP 133 / 65 (auto/); jo3 11:28 Pulse 110 MON; Pulse Ox 95% ; jo3 11:43 BP 133 / 64 (auto/); jo3 11:43 Pulse 110 MON; Pulse Ox 94% ; jo3 11:58 BP 144 / 60 (auto/); jo3 11:58 Pulse 112 MON; Pulse Ox 94% ; jo3 12:13 BP 143 / 66 (auto/); jo3 12:13 Pulse 108 MON; jo3 12:28 BP 141 / 67 (auto/); jo3 12:30 Pulse 108 MON; jo3 12:43 BP 126 / 58 (auto/); jo3 12:43 Pulse 106 MON; jo3 12:58 BP 103 / 55 (auto/); jo3 12:58 Pulse 92 MON; jo3 13:13 BP 130 / 70 (auto/); jo3 13:13 Pulse 96 MON; jo3 13:28 BP 145 / 70 (auto/); jo3 13:37 Pulse 106 MON; jo3 13:43 BP 145 / 65 (auto/); jo3 13:58 BP 146 / 65 (auto/); jo3 14:13 BP 150 / 67 (auto/); jo3 14:28 BP 146 / 83 (auto/); jo3 14:28 Pulse 106 MON; Resp 18; Temp 97.4(T); Pulse Ox 94% ; jo3 MDM: 10:17 ECG WITH READING ER PHYS+CARDIAG ordered. EDMS 11:06 CBC with Diff Ordered. EDMS 11:06 MED Profile Ordered. EDMS 11:06 TSH with Free T4 Ordered. EDMS 11:06 Magnesium Level Ordered. EDMS 11:16 Differential Diagnosis: suspected seizure activity, advanced dementia. Plan: labs, d/w pc PCP. 11:27 Financial registration complete. lg 11:39 [facility] Payment Agreement was scanned into [employer] and attached to record. lg 11:50 CBC with Diff Reviewed. pc 11:50 MED Profile Reviewed. pc 11:50 TSH with Free T4 Reviewed. pc 11:50 Magnesium Level Reviewed. pc 12:52 levETIRAcetam 250 mg PO once ordered. pc 13:35 Data reviewed: old medical records, vital signs, nurses notes, lab test results. Test pc interpretation: LAB - all labs as ordered have been reviewed, interpreted and considered in the overall management of the clinical presentation;. The patient has been re-examined and re-evaluated. There is no appreciated change of the patient's symptoms at this time. Physician consultation: Dr. Dm Doshi MD regarding patient's condition, and advises the medications/treatment as provided. Disposition: The historical points, examination findings, and any diagnostic results supporting the provided diagnosis, were discussed with the patient or legal guardian. The need for outpatient follow up with the provider listed on their discharge instructions was discussed. They were encouraged to return to [facility], or the nearest ED, if symptoms worsen/persist, or for any other questions/concerns. 13:38 Test interpretation: EKG. pc EC:38 Rate is 127 beats/min. Rhythm is regular, Sinus tachycardia. QRS [place] is Normal. IA pc interval is normal. QRS interval is normal. QT interval is normal. No Q waves. T waves are Normal. ST Segment is depressed in leads V3, V4, V6, <1mm. Clinical impression: Sinus tachycardia, Nonspecific ST-T changes, and Incomplete RBBB. No change from previous ECG in January,. Administered Medications: 13:10 Drug: levETIRAcetam 250 mg [levetiracetam 250 mg tablet (1 tabs)] Route: PO; jo3 Signatures: Dispatcher [employer] PharmAssist EDMS Trevin Suero MD MD pc Ganter, LoriLee, Doug Camacho Zo Busch RN RN jo3 The chart was reviewed and I authenticate all verbal orders and agree with the evaluation and treatment provided.Corrections: (The following items were deleted from the chart) 11:16 11:07 She was being reclined in a chair when her eyes rolled back into her head, she pc became apneic and "blanco around the mouth" and was unresponsive for 30-60 seconds. It was another pc Attachments: 11:39 [facility] Payment Agreement lg Chart Complete MTDD
== END 2016-07-08 15:00 | disposition home or self-care (01) ==
LOC: M ED 10:06
DX: G40.901 Epilepsy, unspecified, not intractable, with status epilepticus (principal); G30.0 Alzheimer's disease with early onset; N18.9 Chronic kidney disease, unspecified; E03.9 Hypothyroidism, unspecified; M06.9 Rheumatoid arthritis, unspecified; Z90.79 Acquired absence of other genital organ(s); Z96.641 Presence of right artificial hip joint; Z90.89 Acquired absence of other organs; Z79.899 Other long term (current) drug therapy

== ENCOUNTER 2016-12-06 12:40 | Emergency (ER) | payer OTHER, MEDICAID ==
[~2016-12-06] VITALS: Ht 170.2 cm; Wt 59.0 kg
[2016-12-06] MEDS ORDERED: ESTR1TAB (12:59)
[2016-12-06] MEDS ORDERED: RISP0.5T3 (12:59)
[2016-12-06] MEDS ORDERED: LEVE250T5 (12:59)
[2016-12-06] MEDS ORDERED: IRBE150T12 (12:59)
[2016-12-06] MEDS ORDERED: ROZE8TAB16 (12:59)
[2016-12-06] MEDS ORDERED: ALPR0.25 (12:59)
[2016-12-06] MEDS ORDERED: SERT-138 (12:59)
[2016-12-06] MEDS ORDERED: NS 1,000 ML IV SCH (13:03)
--- NOTE | 2016-12-06 13:10 | REP ---
Supine abdomen single AP view: There are no comparisons. The bowel gas pattern is normal. There are surgical clips in the right upper quadrant. There is a total left hip arthroplasty. There are degenerative disc changes in the lumbar spine. There are atheromatous calcifications in the pelvis. Impression: Normal bowel gas pattern. Signed by Eric Coto MD 12/06/2016 01:00 P
--- NOTE | 2016-12-06 13:12 | REP ---
Portable chest, single AP view, the patient supine, 12:56 p.m.: There are no comparisons. The lung bolivar are clear. Cardiac size is normal. There are surgical clips in the abdominal right upper quadrant and at the base of the neck. The aung and mediastinum are unremarkable. There are advanced arthritic changes in the shoulders bilaterally. Impression: There are no acute cardiopulmonary findings. There are advanced arthritic changes in the shoulders bilaterally. Signed by Eric Coto MD 12/06/2016 01:03 P
[2016-12-06] MEDS ORDERED: NS 500 ML IV ONE (13:15)
[2016-12-06 13:31] LABS: BASO % 0.2 % (0.0-1.0); EOS % 0.6 % (0.0-3.0); LARGE UNSTAINED CELL # 0.1 K/mm3 (0.0-0.4); LARGE UNSTAINED CELL % 1.1 % (0.0-4.0); LYMPH % 20.3 % (24.0-44.0); MEAN CORPUSCULAR HEMOGLOBIN 30.4 pg (27.0-33.0); MEAN CORPUSCULAR HGB CONC 32.4 g/dl (32.0-36.5); MEAN CORPUSCULAR VOLUME 93.8 fl (80.0-96.0); MONO # 0.5 K/mm3 (0.0-0.8); MONO % 5.2 % (0.0-5.0); NEUTROPHILS # 6.9 K/mm3 (1.8-7.7); NEUTROPHILS % 72.6 % (36.0-66.0); PLATELET COUNT, AUTOMATED 229 k/mm3 (150-450); RED CELL DISTRIBUTION WIDTH 13.6 % (11.5-14.5); WHITE BLOOD COUNT 9.5 K/mm3 (4.0-10.0)
[2016-12-06 13:54] LABS: ALBUMIN/GLOBULIN RATIO 0.73 (1.00-1.93); ALKALINE PHOSPHATASE 103 U/L (45-117); ALT/SGPT 15 U/L (12-78); ANION GAP 7 MEQ/L (8-16); AST/SGOT 13 U/L (15-37); BILIRUBIN,DIRECT < 0.1 MG/DL (0.0-0.2); BILIRUBIN,TOTAL 0.4 MG/DL (0.2-1.0); BLOOD UREA NITROGEN 45 MG/DL (7-18); CALCIUM LEVEL 9.1 MG/DL (8.8-10.2); CARBON DIOXIDE LEVEL 27 MEQ/L (21-32); CHLORIDE LEVEL 112 MEQ/L (98-107); CREATININE FOR GFR 1.35 MG/DL (0.55-1.02); GLOMERULAR FILTRATION RATE 40.3 (>39); GLUCOSE, FASTING 107 MG/DL (83-110); SODIUM LEVEL 146 MEQ/L (136-145); TOTAL PROTEIN 7.1 GM/DL (6.4-8.2)
[2016-12-06 13:57] LABS: MICROSCOPIC INDICATED? MAN YES (NO)
[2016-12-06 14:02] LABS: BACTERIA, URINE LARGE AMOUNT; HYALINE CAST, URINE NONE SEEN /lpf (0-1); MICROSCOPIC EXAM PERFORMED; SQUAMOUS EPITHELIAL CELL URINE LARGE AMOUNT /hpf (SMALL AMT)
[2016-12-06] MEDS ORDERED: MACR100C43 PO (14:28)
--- NOTE | 2016-12-06 14:35 | REP ---
This is a redictation for the supine AP abdomen. The study was previously placed in the wrong patient's film file, hence this redictation. Comparison is 02/22/2014. The bowel gas pattern is normal. There are surgical clips in the right upper quadrant. There is a total left hip arthroplasty. There is a pessary is superimposed over the pelvis inferiorly. There are degenerative changes in the lumbar spine. There are atheromatous calcifications in the pelvis. Impression: Normal bowel gas pattern. Pessary. Signed by Eric Coto MD 12/06/2016 02:26 P
--- NOTE | 2016-12-06 14:38 | REP ---
This is a redictation of the AP supine chest one-view . The study was originally placed in the wrong patient's film file, hence this redictation. Comparison is 01/25/2016. The lung bolivar are clear. Cardiac size is normal. There are surgical clips in the abdominal right upper quadrant. There are surgical clips at the base of the neck. The aung and mediastinum are unremarkable. There are advanced arthritic changes in the shoulders bilaterally. Impression: There are no acute cardiopulmonary findings. Advanced arthritic changes in the shoulders bilaterally. Signed by Eric Coto MD 12/06/2016 02:29 P
--- NOTE | 2016-12-06 17:37 | REP ---
CT BRAIN WITHOUT CONTRAST: 12/06/2016. Comparison: 05/04/2016, 01/25/2016, MRI brain 04/21/2013. Clinical history: Seizure disorder, decreased mental status. Findings: Noncontrast soft tissue and bone windows are reviewed for each slice level. Lateral ventricles are midline, symmetric, dilated in proportion to the moderately severe diffuse atrophy. The biventricular diameter of the frontal horns is 44 mm, unchanged no midline shift. Third ventricle is increased 1 mm transverse diameter, now 11 mm. Fourth ventricle mildly prominent as well. There is extensive perihilar change suggesting chronic small vessel white matter ischemic disease. The blanco-white junction differentiation was well maintained. Cortical stripe is atrophic but moderately severe atrophy and no evidence of an acute infarct, hemorrhage, mass or mass effect. Brainstem is intact. Cerebellum shows atrophy but no posterior fossa hemorrhage. Basal cisterns intact. Visualized mastoids and sinuses clear. Skull base and calvarium show no fracture or focal lesion. There are vascular calcifications carotid siphons. Impression: 1. Moderately severe diffuse atrophy, similar to previous studies with extensive small vessel white matter ischemic change of aging and no evidence of an acute infarct, intracranial hemorrhage, mass, mass effect or edema. 2. No fracture in the skull base or calvarium and the visualized sinuses and mastoids are clear. Signed by Augusto Messina MD 12/06/2016 05:40 P
[2016-12-06 18:20] VITALS: BP 127/68
--- NOTE | 2016-12-07 08:58 | ECGEPIP ---
Stationary ECG Study [facility] - ED Test Date: 2016-12-06 Pat Name: SIRI MESSER Department: Room: - Gender: F Nursing Home Assistant Administrator: CASSANDRA : 1935 Requested By: CALIN NOE Order Number: [id number] Reading MD: Patsy Villafuerte Measurements Intervals [place] Rate: 82 P: 91 [place]: 118 QRS: 29 QRSD: 82 T: 125 QT: 365 QTc: 426 Interpretive Statements SINUS RHYTHM WITH SHORT [place] INTERVAL PROBABLE - SIGNIFICANT BASELINE ARTIFACT MODERATE T-WAVE ABNORMALITY, CONSIDER ANTERIOR ISCHEMIA Electronically Signed On 12-07-2016 8:58:43 EDT by Patsy Villafuerte
== END 2016-12-06 18:22 | disposition home or self-care (01) ==
LOC: M ED 13:31
DX: G30.1 Alzheimer's disease with late onset (principal); N39.0 Urinary tract infection, site not specified; E07.9 Disorder of thyroid, unspecified; N28.9 Disorder of kidney and ureter, unspecified; Z88.2 Allergy status to sulfonamides; Z79.899 Other long term (current) drug therapy
CPT/HCPCS: 70450; 71010; 74000; 80048; 80076; 81000; 82550; 82553; 83605; 84443; 84484; 85025; 87088; 87186; 93005; 93041; 94760; 99285; G0480; P9612